=== PATIENT | female | born 1995 | race Hispanic/Latino ===

== ENCOUNTER 2024-05-06 10:42 | Emergency (ER) | payer OTHER ==
[~2024-05-06] VITALS: Ht 157.5 cm; Wt 95.3 kg
[2024-05-06 10:49] VITALS: BP 134/89; PULSE 63; RESP 16; RESP 18; TEMP 98; O2SAT 97
[2024-05-06] MEDS ORDERED: ZOFRAN ODT ONE (11:09)
[2024-05-06] MEDS: ZOFRAN ODT SL STA (11:17)
[2024-05-06 11:28] LABS: BASOPHIL % 0.3 % (0.1-1.2); EOSINOPHIL # 0.1 10^3/uL (0.0-0.2); EOSINOPHIL % 0.6 % (0.0-5.0); HEMATOCRIT(ML) 38.5 % (36.0-46.0); HEMOGLOBIN 12.6 g/dL (12.0-15.0); IG % 0.2 % (0.00-0.50); LYMPHOCYTES # 2.32 10^3/uL1 (1.0-4.8); MEAN CORP HGB 28.3 pg (26-34); MEAN CORP HGB CONCENTRATION 32.7 g/dL (33-36.5); MEAN CORP VOLUME 86.5 fL (78-100); MONOCYTES # 0.6 10^3/uL (0.3-0.8); MONOCYTES % 5.7 % (5.0-12.0); NEUTROPHIL # 6.7 10^3/uL (1.8-7.7); NEUTROPHILS % 69.2 % (41.0-85.0); RED BLOOD CELL 4.45 10^6/uL (4.00-5.20); RED CELL DISTRIBUTION WIDTH 13.4 % (11.5-14.5); WHITE BLOOD CELL 9.7 10^3/uL (4.5-11.0)
[2024-05-06 11:57] LABS: ALBUMIN(ML) 3.6 g/dL (3.4-5.0); ALBUMIN/GLOBULIN RATIO 0.878; ANION GAP 13.6; BUN/CREATININE RATIO 23.07 (10.0-20.0); CALCIUM 9.2 mg/dL (8.4-10.5); CARBON DIOXIDE 24.4 mmol/L (20.0-32); CREATININE SERUM 0.78 mg/dL (0.59-1.40); EST GFR, NON-AA 86.7 (>/=60)
[2024-05-06] MEDS ORDERED: TORADOL ONE (12:51)
[2024-05-06] MEDS: TORADOL IM STA (12:56)
== END 2024-05-06 13:12 | disposition home or self-care (01) ==
LOC: ER 10:42
DX: S09.90XA Unspecified injury of head, initial encounter (principal); W18.39XA Other fall on same level, initial encounter; Y93.89 Activity, other specified; Y92.89 Other specified places as the place of occurrence of the external cause; Y99.8 Other external cause status
CPT/HCPCS: 99285; 70450; 96372; 72125; 80053; 85025; 36415; 84703; J1885